=== PATIENT | female | born 1980 | race Caucasian/White ===

== ENCOUNTER 2020-06-13 12:02 | Emergency (ER) | payer BC, OTHER | END 2020-06-13 13:14 | disposition home or self-care (01) | LOC: MADERS 12:02 | DX: S70.02XA Contusion of left hip, initial encounter (principal); I48.91 Unspecified atrial fibrillation; Z79.82 Long term (current) use of aspirin; Z79.899 Other long term (current) drug therapy; Z86.73 Personal history of transient ischemic attack (TIA), and cerebral infarction without residual deficits; W01.0XXA Fall on same level from slipping, tripping and stumbling without subsequent striking against object, initial encounter ==